=== PATIENT | male | born 1965 | race Caucasian/White ===

== ENCOUNTER 2017-03-07 18:55 | Emergency (ER) | payer SELFPAY ==
[~2017-03-07] VITALS: Ht 175.3 cm; Wt 82.7 kg
[2017-03-07 19:24] VITALS: BP 125/84; PULSE 74; RESP 16; O2SAT 98
--- NOTE | 2017-03-07 20:00 | ED.REPORT ---
HPI-Rash / Abscess Date of Service Mar 07, 2017 ED Provider: Dillon De Paz MD Art is otherwise healthy 51-year-old male presenting with a chief complaint spider bites. Patient reports the onset of itchy, red raised lesion in the medial aspect of his right eyebrow beginning about 4 days ago. First noted with small puncture, which led him to believe it was a bite. Denies discharge. Since then he has noticed several additional lesions on his forehead , without breaks in the skin. Denies fever, shaking chills, abdominal pain, vomiting, myalgias. Reports a history of chickenpox and is concerned about shingles. Nursing Notes Stated Complaint: SPIDER BITES Chief Complaint: Skin Rash/Abscess Nursing Notes Reviewed: Yes Allergies: Coded Allergies: Penicillins (Verified Allergy, Unknown, 03/07/17) Scheduled Mupirocin Cream (Bactroban Cream) 15 Gm Cream..g. 1 APPLIC TOPICAL TID General Time Seen by MD: 19:58 Chief Complaint Other (spider bite) Past Medical History Past Medical History None Review of Systems Review of Systems Note: Negative unless stated otherwise in history of present illness Physical Exam General: Well appearing, well developed, well nourished, no acute distress. Head: Atraumatic, normocephalic. 1 cm lesion on the medial aspect of the right eyebrow, slight excoriation, redness, swelling. 3x1 cm raised slightly red, itchy and tender lesions without breaks in the skin on the forehead. Eyes: No scleral icterus or injection. No discharge. Vision grossly intact. ENT: Voice clear, hearing grossly intact. Respiratory: No respiratory distress, no increased work of breathing. Speaks in complete sentences. Skin: Warm and dry. Neurological: Grossly nonfocal. Psychological: alert and oriented. Speech appropriate, linear and logical. Behavior appropriate. Initial Vital Signs Vital Signs (First) Date Time Temp Pulse Resp B/P Pulse Ox O2 Delivery O2 Flow Rate FiO2 03/07/17 19:24 37.1 74 16 125/84 98 Room Air Normal Re-Eval/Medical Decision Med Decision/Clinical Course Otherwise healthy 51-year-old male presents with chief complaint of spider bites , complains of a lesion in his right eyebrow as well as some of his forehead and scalp. Worse the first lesion in his eyebrow was noted to have a puncture wound initially. Physical examination reveals an excoriated lesion in the right eyebrow, as well as small areas of slight redness and swelling on the forehead and scalp. Otherwise benign examination with normal vital signs. I discussed the case with Dr. mayank butcher, but I would not examine the patient. We are reassured against herpes ophthalmicus, abscess, envenomation, TENS, SJS. The patient is stable and safe to be discharged. Provided Bactroban for excoriated wound, hydrocortisone 2% ointment for itching and swelling areas. Advised regarding primary care follow-up, provided emergency return precautions. Patient verbalized understanding of, and consent to, the plan. Discharge & Departure Impression: Primary Impression: Rash Disposition: Home Discharge Condition All VS Reviewed: Yes Additional Instructions: Evaluation in the emergency department for bumps on her forehead interview and physical examination here these are reassuring this is unlikely to be caused by an immediately dangerous condition is that of a spider bite or shingles. We believe you are safe to be discharged home. I will write a prescription for Bactroban to be applied to the broken skin to prevent infection. I will write a prescription for hydrocortisone 2% cream to be applied to the unbroken lesions 2-3 times a day until resolved. Follow-up with your primary care provider if symptoms continue more than for 5 days. Return to emergency department for new or worsening symptoms including pain in the eye, changes in vision, increasing redness, swelling, pain. Referrals: Emma Estrella DO (PCP) EDSupervising Provider for APC: Dillon De Paz MD Attending Statement Attending attestation: I saw this patient in conjunction with Isdiro Spencer PA-C. I agree with the workup, evaluation, treatment and disposition. I examined the patient and his lesions are not classically consistent with zoster. There is no evidence of ocular involvement. I had a long discussion with the patient regarding follow- up and return precautions importance of being reevaluated right away should he develop any visual complaints, eye pain or lesions in his eye. Dillon De Paz MD copies to: Emma Estrella Beck O MD Mar 07, 2017 19:59 Isidro Spencer PA-C Mar 07, 2017 20:31
[2017-03-07] MEDS ORDERED: MUPI15CR TOPICAL (20:43)
== END 2017-03-07 20:55 | disposition home or self-care (01) ==
LOC: SED 18:55
DX: R21 Rash and other nonspecific skin eruption (principal); Z88.0 Allergy status to penicillin